=== PATIENT | female | born 1945 | race Caucasian/White ===

== ENCOUNTER 2021-03-27 05:12 | Inpatient (IN) | payer MEDICARE ==
[~2021-03-27] VITALS: Ht 157.5 cm; Wt 61.3 kg
[2021-03-27 06:57] VITALS: BP 163/85
[2021-03-27] MEDS ORDERED: BLOOD SUGAR DIAGNOSTIC 1 EACH STRIP IN ONE (07:00)
[2021-03-27] MEDS ORDERED: MAGNESIUM HYDROXIDE 30 ML UDC PO PRN (07:00)
[2021-03-27] MEDS ORDERED: MAG HYDROX/AL HYDROX/SIMETH 30 ML UDC PO PRN (07:00)
--- NOTE | 2021-03-27 07:37 | NUR ---
rn notes patient refused blood glucose to be checked, and keep asking paperwork, and belonging, to go out.
[2021-03-27 08:00] VITALS: BP 140/79
--- NOTE | 2021-03-27 08:00 | NUR ---
RN ADMITTING NOTES PATIENT GET ADMITTED FROM [facility] FOR DX OF PSYCHOSIS NOS, ON HOLD 5150. PATIENT A/O X2, IRRITABLE, CONFUSED, AND PARANOID EASILY. VSS, SKIN ASSESSMENT DONE INTACT. PATIENT AMBULATORY. TOLERATED BREAKFAST WELL. KEEP ASKING CLOTHING BECAUSE OF NOT FEEL COMFORTABLE. PATIENTS RIGHT BOOK GIVEN AND EXPLAINED. PATIENT NEED MORE TEACH. HOSPITALIST, AND PSYCHIATRIST AWARE OF NEW PATIENT AND MEDICATION. WILL MONITORING.
[2021-03-27 08:09] VITALS: BP 140/79
[2021-03-27] MEDS ORDERED: ATOR10TA PO (08:29)
[2021-03-27] MEDS ORDERED: METO-357 PO (08:29)
[2021-03-27] MEDS ORDERED: LOSA100T31 PO (08:29)
[2021-03-27] MEDS ORDERED: PANT40TA49 PO (08:29)
[2021-03-27] MEDS ORDERED: MELO-105 PO (08:29)
[2021-03-27] MEDS ORDERED: NORT10CA PO (08:29)
[2021-03-27] MEDS: ACETAMINOPHEN 325 MG TABLET PO PRN (10:25)
[2021-03-27] MEDS: LORAZEPAM 0.5 MG TABLET PO PRN (10:25)
--- NOTE | 2021-03-27 10:25 | NUR ---
rn notes administered Ativan 0.5 mg po prn for anxiety, and Tylenol 650mg po prn bilateral knees pain 5/10 per patient request, bp140/79, p-97. will monitoring.
[2021-03-27 16:00] VITALS: BP 148/64
[2021-03-27] MEDS: risperiDONE 0.25 MG TABLET PO SCH (17:19)
[2021-03-27 19:40] VITALS: BP 147/84
[2021-03-27] MEDS: TEMAZEPAM 7.5 MG CAPSULE PO PRN (21:46)
[2021-03-28 08:00] VITALS: BP 158/79
[2021-03-28] MEDS: risperiDONE 0.25 MG TABLET PO SCH ×2 (08:42→16:37)
--- NOTE | 2021-03-28 09:00 | NUR ---
RN NOTE- PT ALERT CONFUSED DENIES SI HI AH VH, OPPOSITIONAL TO RX BUT WAS MED COMPLIANT AFTER DISCUSSION. VISIBLE ON UNIT LABILE AT TIMES
[2021-03-28] MEDS: LOSARTAN POTASSIUM 50 MG TABLET PO SCH (11:11)
[2021-03-28] MEDS: METOPROLOL SUCCINATE 50 MG TAB.SR.24H PO SCH (11:11)
[2021-03-28 12:04] LABS: ALBUMIN 3.7 g/dL (3.4-5.0); BILIRUBIN,TOTAL 0.4 mg/dL (0.2-1.0); CALCIUM, SERUM 9.3 mg/dL (8.5-10.1); POTASSIUM 3.7 mmol/L (3.5-5.1); TOTAL PROTEIN, SERUM 7.4 g/dL (6.4-8.2)
--- NOTE | 2021-03-28 15:30 | NUR ---
Family Contact: Pts daughter, Kiara ([phone]), contacted the SW and stated that the pt cannot return home so the SW discussed SNF placement. SW recommended [facility] due to the location and due to the continuation of care for the psychiatrist. Pts daughter stated that she will call the SW back.
[2021-03-28 16:00] VITALS: BP 152/84
[2021-03-28 20:23] VITALS: BP 155/63
[2021-03-28] MEDS: LORAZEPAM 0.5 MG TABLET PO PRN (21:48)
--- NOTE | 2021-03-28 21:50 | NUR ---
GPS RN NOTES: PATIENT IS RESTLESS, ANXIOUS, CONFUSED. ATIVAN 0.5MG/1TAB GIVEN PO PRN ORDERED AT 8. WILL CONTINUE TO MONITOR.
[2021-03-28] MEDS ORDERED: risperiDONE 0.25 MG TABLET PO SCH (22:00)
--- NOTE | 2021-03-28 22:52 | NUR ---
GPS RN NOTES: PATIENT REFUSED PM RISPERDAL O.25MG/1TAB ORDERED. PER PATIENT "I WILL NOT TAKE ANY ILLEGAL MEDICATION". WILL CONTINUE TO MONITOR.
--- NOTE | 2021-03-29 06:31 | NUR ---
GPS RN CLOSING NOTES: PATIENT IS LAYING ON BED SLEEPING. PATIENT SLEPT 6HRS THIS SHIFT. NO S/S OF DISTRESS. RESPIRATION EVEN AND UNLABORED WITH EQUAL RISE AND FALL OF THE CHEST ON ROOM AIR. ALL PATIENT CARE NEEDS HAVE BEEN MET ANTICIPATED. BED IN LOWEST POSITION AND LOCKED WITH SIDE RAILS UP X2. WILL CONTINUE TO MONITOR FOR SAFETY, MOOD AND BEHAVIOR AND ENDORSE TO AM SHIFT
[2021-03-29 08:00] VITALS: BP 150/78
[2021-03-29] MEDS: MELOXICAM 7.5 MG TABLET PO SCH (08:13)
[2021-03-29] MEDS: ATORVASTATIN 10 MG TABLET PO SCH (08:14)
[2021-03-29] MEDS: PANTOPRAZOLE 40 MG TABLET.DR PO SCH (08:14)
[2021-03-29] MEDS: LOSARTAN POTASSIUM 50 MG TABLET PO SCH (08:14)
[2021-03-29] MEDS: METOPROLOL SUCCINATE 50 MG TAB.SR.24H PO SCH (08:14)
[2021-03-29] MEDS: risperiDONE 0.25 MG TABLET PO SCH ×2 (08:14→16:32)
[2021-03-29 16:00] VITALS: BP 135/79
[2021-03-29 20:00] VITALS: BP 158/73
[2021-03-29] MEDS ORDERED: risperiDONE 0.25 MG TABLET PO SCH (22:00)
[2021-03-30] VITALS (7 sets, daily range): BP systolic 108–188; BP diastolic 53–115
[2021-03-30] MEDS: PANTOPRAZOLE 40 MG TABLET.DR PO SCH (08:12)
[2021-03-30] MEDS: ATORVASTATIN 10 MG TABLET PO SCH (08:12)
[2021-03-30] MEDS: MELOXICAM 7.5 MG TABLET PO SCH (08:13)
[2021-03-30] MEDS: METOPROLOL SUCCINATE 50 MG TAB.SR.24H PO SCH (08:13)
[2021-03-30] MEDS: risperiDONE 0.25 MG TABLET PO SCH ×3 (08:13→21:19)
[2021-03-30] MEDS: LOSARTAN POTASSIUM 50 MG TABLET PO SCH (08:15)
--- NOTE | 2021-03-30 09:18 | NUR ---
Placement Contact: SW returned the call of Dr. Arevalo ([phone]), who left a voicemail stating that she would like to speak to the SW about the pts condition and why SNF was being recommended as the discharge plan. SW called and left a voicemail stating that she is available to speak to her about this pt.
--- NOTE | 2021-03-30 12:43 | NUR ---
Initial Discharge Plan: Pt currently resides at her home with her located at [address] [place] [address]; ([phone]). Per pt, she would like to go home. SW will work with the pt and the MD regarding appropriate discharge planning. SW will form a safe and proper discharge plan.
--- NOTE | 2021-03-30 13:14 | NUR ---
Placement Contact: Dr. Arevalo ([phone]) called the SW and stated that she wanted to know why the pt was being recommended for SNF. SW explained the reasoning and stated that memory care or assisted living would be acceptable for dedicated intermodal truck driver placement. Dr. Arevalo stated that she will speak to the family.
--- NOTE | 2021-03-30 15:35 | NUR ---
BP 184/115 and [place] [address] Little and added Nifedipine 30 mg Extended Release daily and to start now. Called the pharmacist for clarification of the Nifedipine Extended Release and XL and spoke to [facility] and said that they are all the same.
[2021-03-30] MEDS: NIFEdipine XL (30MG) 30 MG TAB PO SCH (15:42)
--- NOTE | 2021-03-30 20:08 | NUR ---
GPS RN NOTES RECEIVED PT AWAKE AND IN BED NO S/S OR COMPLAINTS OF PAIN AT THIS TIME. PT IS DISPLAYING NO S/S OF APPARENT DISTRESS A THIS TIME.PT BREATHING IS UNLABORED WITH EQUAL RISE AND FALL OF THE CHEST. PT IS ALERT AND ORIENTED X3 PARANOID COOPERATIVE, MEDICATION COMPLIANT. ON ROOM AIR TOLERATING WELL. DENIES AN SI OR HI AT THIS TIME. PT HELP ASSISTED WITH TURNING AND REPOSITIONING Q2HR AND PRN FOR COMFORT AND CIRCULATION. BED SIDE RAILS UP X2 FOR SAFETY. BED LOCKED AND LOW.ALL NURSING NEEDS MET AT THIS WILL CONTINUE TO MONITOR Q15 MIN WITH THE HELP OF STAFF TO MAINTAIN SAFETY TIME.
--- NOTE | 2021-03-30 21:22 | NUR ---
RN NOTE PATIENT REQUESTED TO TAKE ANY SCHEDULED MEDICINE TONIGHT AT THIS TIME, SO SHE CAN SLEEP & DOES NOT WANT TO BE BOTHERED AGAIN. SCHEDULED RISPERDAL 0.75 MG PO ADMINISTERED AT THIS TIME PER PATIENT REQUEST. WILL CONTINUE TO MONITOR.
--- NOTE | 2021-03-30 22:45 | NUR ---
RN NOTE PATIENT WOKE UP, WENT TO THE BATHROOM, NO ACUTE DISTRESS NOTED. NO C/O HEADACHE, DIZZINESS, CHEST PAIN OR BLURRED VISION VERBALIZED BY THE PATIENT AT THIS TIME. PATIENT REFUSED HER BP TO BE CHECKED AT THIS TIME & WANTED TO GO BACK TO SLEEP. WILL CONTINUE TO MONITOR FOR ANY CHANGE OF CONDITION.
[2021-03-31] MEDS: PANTOPRAZOLE 40 MG TABLET.DR PO SCH (07:03)
[2021-03-31 08:00] VITALS: BP 117/63
[2021-03-31] MEDS: LOSARTAN POTASSIUM 50 MG TABLET PO SCH (08:15)
[2021-03-31] MEDS: MELOXICAM 7.5 MG TABLET PO SCH (08:15)
[2021-03-31] MEDS: ATORVASTATIN 10 MG TABLET PO SCH (08:15)
[2021-03-31] MEDS: risperiDONE 0.25 MG TABLET PO SCH ×4 (08:15→22:00)
[2021-03-31] MEDS: METOPROLOL SUCCINATE 50 MG TAB.SR.24H PO SCH (08:15)
[2021-03-31 09:18] VITALS: BP 148/74
[2021-03-31] MEDS: NIFEdipine XL (30MG) 30 MG TAB PO SCH (09:18)
--- NOTE | 2021-03-31 10:16 | NUR ---
Family Contact: SW called the pts daughter, Kiara ([phone]), and left her a voicemail with an update on the pts behavior. SW expressed that the pt is medication compliant and that she has been coming out of her room and participating in the activities. SW stated that she still remains paranoid and delusional about someone coming into the house to sleep with her . SW stated that the daughter can call back if she has any questions.
--- NOTE | 2021-03-31 10:33 | NUR ---
Probable Cause Hearing: Pts 5250 hold was upheld for grave disability.
--- NOTE | 2021-03-31 11:36 | NUR ---
Family Contact: SW called the pts daughter, Kiara ([phone]), in response to her voicemail and explained that the pts diagnosis includes cognitive disorder unspecified.
[2021-03-31] MEDS: ACETAMINOPHEN 325 MG TABLET PO PRN (14:27)
[2021-03-31 16:00] VITALS: BP 123/52
--- NOTE | 2021-03-31 19:15 | NUR ---
RECEIVED PATIENT IN BED, AWAKE. ON ROOM AIR. BREATHING EVEN AND UNLABORED. NO S/S OF DISTRESS. NO C/O PAIN. PATIENT DENIES SUICIDAL IDEATIONS AT THIS TIME. ALL NEEDS ATTENDED. WILL CONTINUE TO MONITOR Q15 MIN WITH THE HELP OF STAFF TO MAINTAIN SAFETY.
[2021-03-31 20:03] VITALS: BP 136/70
[2021-04-01 08:00] VITALS: BP 147/68
[2021-04-01] MEDS: PANTOPRAZOLE 40 MG TABLET.DR PO SCH (08:00)
[2021-04-01] MEDS: LOSARTAN POTASSIUM 50 MG TABLET PO SCH (08:10)
[2021-04-01] MEDS: NIFEdipine XL (30MG) 30 MG TAB PO SCH (08:10)
[2021-04-01] MEDS: risperiDONE 0.25 MG TABLET PO SCH ×3 (08:11→21:21)
[2021-04-01] MEDS: ATORVASTATIN 10 MG TABLET PO SCH (08:11)
[2021-04-01] MEDS: METOPROLOL SUCCINATE 50 MG TAB.SR.24H PO SCH (08:11)
[2021-04-01] MEDS: MELOXICAM 7.5 MG TABLET PO SCH (08:12)
[2021-04-01 16:00] VITALS: BP 128/69
--- NOTE | 2021-04-01 19:50 | NUR ---
RN NOTE RECEIVED PATIENT RESTING IN BED. AWAKE, A/O X 3. NO COMPLAINTS OF PAIN AT THIS TIME. RESPIRATIONS EVEN AND UNLABORED. NO S/SX OF DISTRESS OR AGITATION NOTED. PATIENT AMBULATES WITH STEADY GAIT. ALL NEEDS ATTENDED TO. ASPIRATION, FALL AND SAFETY PRECAUTIONS MAINTAINED. WILL CONTINUE TO MONITOR FOR SAFETY.
[2021-04-01 20:12] VITALS: BP 152/69
[2021-04-01] MEDS: ACETAMINOPHEN 325 MG TABLET PO PRN (21:50)
[2021-04-01] MEDS: LORAZEPAM 0.5 MG TABLET PO PRN (21:50)
--- NOTE | 2021-04-01 21:50 | NUR ---
RN NOTE PATIENT WITH C/O HEADACHE AND INCREASED ANXIETY. ADMINISTERED TYLENOL AND ATIVAN PRN WITH PENDING EFFECT. WILL CONTINUE TO MONITOR.
[2021-04-02 08:00] VITALS: BP 145/58
[2021-04-02] MEDS: PANTOPRAZOLE 40 MG TABLET.DR PO SCH (08:10)
[2021-04-02] MEDS: risperiDONE 0.25 MG TABLET PO SCH ×3 (08:10→21:17)
[2021-04-02] MEDS: MELOXICAM 7.5 MG TABLET PO SCH (08:10)
[2021-04-02] MEDS: ATORVASTATIN 10 MG TABLET PO SCH (08:10)
[2021-04-02] MEDS: METOPROLOL SUCCINATE 50 MG TAB.SR.24H PO SCH (08:11)
[2021-04-02] MEDS: LOSARTAN POTASSIUM 50 MG TABLET PO SCH (08:11)
[2021-04-02] MEDS: NIFEdipine XL (30MG) 30 MG TAB PO SCH (08:11)
[2021-04-02 16:00] VITALS: BP 142/76
--- NOTE | 2021-04-02 16:15 | NUR ---
RN-CO: CALLED AND SAID PT IS TAKING COMBIGAN EYE DROPS AT HOME Q HS FOR HER GLAUCOMA. PER SPOUSE HE WILL BRING IT TOMORROW. NOTIFIED DR TOVAR AND STATED TO PUT THE ORDER FOR TOMM. NOTED. ENDORSE TO NEXT SHIFT.
[2021-04-02] MEDS ORDERED: BRIM5DRO2 EACHEYE (18:23)
[2021-04-02 20:00] VITALS: BP 155/75
[2021-04-02] MEDS: COMBIGAN EACHEYE SCH (21:19)
[2021-04-03] MEDS: PANTOPRAZOLE 40 MG TABLET.DR PO SCH (07:30)
[2021-04-03 08:00] VITALS: BP 147/58
[2021-04-03] MEDS: ATORVASTATIN 10 MG TABLET PO SCH (09:13)
[2021-04-03] MEDS: risperiDONE 0.25 MG TABLET PO SCH ×3 (09:13→21:11)
[2021-04-03] MEDS: LOSARTAN POTASSIUM 50 MG TABLET PO SCH (09:13)
[2021-04-03] MEDS: MELOXICAM 7.5 MG TABLET PO SCH (09:14)
[2021-04-03] MEDS: METOPROLOL SUCCINATE 50 MG TAB.SR.24H PO SCH (09:14)
[2021-04-03] MEDS: NIFEdipine XL (30MG) 30 MG TAB PO SCH (09:15)
--- NOTE | 2021-04-03 12:55 | NUR ---
SNF Referral: AMAYA faxed a referral to [facility] with attn to Holly to the fax number: [phone].
--- NOTE | 2021-04-03 13:35 | NUR ---
SNF Contact: Holly ([phone]) from [facility] contacted the SW and stated that the pt is accepted to their facility.
[2021-04-03 16:00] VITALS: BP 143/71
[2021-04-03 20:00] VITALS: BP 150/69
[2021-04-03] MEDS: COMBIGAN EACHEYE SCH (21:11)
[2021-04-03] MEDS: LORAZEPAM 0.5 MG TABLET PO PRN (22:15)
--- NOTE | 2021-04-03 22:16 | NUR ---
GPS RN NOTES: PATIENT IS ANXIOUS, RESTLESS, REQUESTED FOR ANXIETY MEDICATION. ATIVAN 0.5MG/1TAB GIVEN PO PRN ORDERED AT 2215. WILL CONTINUE TO MONITOR.
--- NOTE | 2021-04-04 06:43 | NUR ---
GPS RN CLOSING NOTES: PATIENT IS CURRENTLY LAYING ON BED SLEEPING COMFORTABLY. PATIENT SLEPT 8HRS THIS SHIFT. NO S/S OF DISTRESS. RESPIRATION EVEN AND UNLABORED WITH EQUAL RISE AND FALL OF THE CHEST, ON ROOM AIR. BED IN LOWEST POSITION AND LOCKED WITH SIDE RAILS UP X2. CALL JAVIER WITHIN REACH. ALL PATIENT CARE NEEDS HAVE BEEN MET ANTICIPATED. WILL CONTINUE TO MONITOR FOR SAFETY, MOOD AND BEHAVIOR AND ENDORSE TO AM SHIFT
[2021-04-04 08:00] VITALS: BP 146/62
[2021-04-04] MEDS: ATORVASTATIN 10 MG TABLET PO SCH (09:08)
[2021-04-04] MEDS: MELOXICAM 7.5 MG TABLET PO SCH (09:08)
[2021-04-04] MEDS: PANTOPRAZOLE 40 MG TABLET.DR PO SCH (09:08)
[2021-04-04] MEDS: LOSARTAN POTASSIUM 50 MG TABLET PO SCH (09:08)
[2021-04-04] MEDS: risperiDONE 0.25 MG TABLET PO SCH ×2 (09:08→16:35)
[2021-04-04] MEDS: METOPROLOL SUCCINATE 50 MG TAB.SR.24H PO SCH (09:09)
--- NOTE | 2021-04-04 14:30 | NUR ---
verbalized being upset over spouse and not being able to trust him.
[2021-04-04] MEDS: NIFEdipine XL (30MG) 30 MG TAB PO SCH (16:36)
[2021-04-04 20:00] VITALS: BP 147/64
[2021-04-04] MEDS: LORAZEPAM 0.5 MG TABLET PO PRN (20:58)
--- NOTE | 2021-04-04 21:01 | NUR ---
GPS RN NOTES: PATIENT REQUESTED FOR ATIVAN DUE TO ANXIETY. ATIVAN 0.5MG/1TAB GIVEN PO PRN AT 2057. WILL CONTINUE TO MONITOR.
[2021-04-04] MEDS: COMBIGAN EACHEYE SCH (21:11)
[2021-04-04] MEDS: risperiDONE 1 MG TABLET PO SCH (21:11)
[2021-04-04] MEDS ORDERED: ATORVASTATIN 10 MG TABLET PO SCH (22:00)
--- NOTE | 2021-04-05 06:38 | NUR ---
GPS RN CLOSING NOTES: PATIENT IS AWAKE, A/O X2, AMBULATING IN HALLWAY. PATIENT SLEPT 9HRS THIS SHIFT. NO S/S OF DISTRESS. RESPIRATION EVEN AND UNLABORED WITH EQUAL RISE AND FALL OF THE CHEST, ON ROOM AIR. BED IN LOWEST POSITION AND LOCKED WITH SIDE RAILS UP X2. CALL JAVIER WITHIN REACH. ALL PATIENT CARE NEEDS HAVE BEEN MET ANTICIPATED. WILL CONTINUE TO MONITOR FOR SAFETY, MOOD AND BEHAVIOR AND ENDORSE TO AM SHIFT
--- NOTE | 2021-04-05 07:30 | NUR ---
PT RECEIVED RESTING COMFORTABLY IN BED. NO S/S OR C/O PAIN OR DISTRESS NOTED. WILL CONTINUE PLAN OF CARE.
[2021-04-05 08:00] VITALS: BP_SYST 126; BP_SYST 143; BP_DIAS 60; BP_DIAS 67
[2021-04-05] MEDS: NIFEdipine XL (30MG) 30 MG TAB PO SCH (08:31)
[2021-04-05] MEDS: MELOXICAM 7.5 MG TABLET PO SCH (08:31)
[2021-04-05] MEDS: PANTOPRAZOLE 40 MG TABLET.DR PO SCH (08:31)
[2021-04-05] MEDS: LOSARTAN POTASSIUM 50 MG TABLET PO SCH (08:31)
[2021-04-05] MEDS: ATORVASTATIN 10 MG TABLET PO SCH (08:32)
[2021-04-05] MEDS: METOPROLOL SUCCINATE 50 MG TAB.SR.24H PO SCH (08:32)
[2021-04-05] MEDS: risperiDONE 0.25 MG TABLET PO SCH ×2 (08:32→17:11)
--- NOTE | 2021-04-05 09:05 | NUR ---
Family Contact: AMAYA called the pts daughter, Kiara ([phone]), and was unable to leave a voicemail due to the mailbox being full.
--- NOTE | 2021-04-05 11:07 | NUR ---
Family Contact: AMAYA called the pts daughter, Kiara ([phone]), and was unable to leave a voicemail due to the mailbox being full.
[2021-04-05 16:00] VITALS: BP 147/80
--- NOTE | 2021-04-05 20:00 | NUR ---
GPS RN NOTES REFUSED VITAL SIGNS THIS TIME.UNCOOPERATIVE
[2021-04-05] MEDS: risperiDONE 1 MG TABLET PO SCH (21:38)
[2021-04-05] MEDS: COMBIGAN EACHEYE SCH (21:38)
[2021-04-06 08:00] VITALS: BP 124/62
[2021-04-06] MEDS: LOSARTAN POTASSIUM 50 MG TABLET PO SCH (08:29)
[2021-04-06] MEDS: PANTOPRAZOLE 40 MG TABLET.DR PO SCH (08:29)
[2021-04-06] MEDS: risperiDONE 0.25 MG TABLET PO SCH ×2 (08:29→17:13)
[2021-04-06] MEDS: ATORVASTATIN 10 MG TABLET PO SCH (08:30)
[2021-04-06] MEDS: MELOXICAM 7.5 MG TABLET PO SCH (08:30)
[2021-04-06] MEDS: METOPROLOL SUCCINATE 50 MG TAB.SR.24H PO SCH (08:30)
[2021-04-06] MEDS: NIFEdipine XL (30MG) 30 MG TAB PO SCH (09:28)
[2021-04-06 16:00] VITALS: BP 147/68
--- NOTE | 2021-04-06 19:15 | NUR ---
RN NOTES: RECEIVED PATIENT RESTING IN BED, AWAKE, QUIET AND CALM. PT RESPONDED AND STATED HER NAME WHEN ASKED. PATIENT IS COMFORTABLE IN BED. NO S/S OF DISTRESS NOTED. BED IN LOWEST AND LOCKED POSITION.
[2021-04-06 20:00] VITALS: BP 131/53
[2021-04-06] MEDS: COMBIGAN EACHEYE SCH (21:31)
[2021-04-06] MEDS: risperiDONE 1 MG TABLET PO SCH (21:32)
[2021-04-07] MEDS: PANTOPRAZOLE 40 MG TABLET.DR PO SCH (07:52)
[2021-04-07 08:00] VITALS: BP 162/89
[2021-04-07] MEDS: risperiDONE 0.25 MG TABLET PO SCH ×2 (08:00→16:06)
[2021-04-07] MEDS: ATORVASTATIN 10 MG TABLET PO SCH (08:00)
[2021-04-07] MEDS: LOSARTAN POTASSIUM 50 MG TABLET PO SCH (08:01)
[2021-04-07] MEDS: MELOXICAM 7.5 MG TABLET PO SCH (08:01)
[2021-04-07] MEDS: NIFEdipine XL (30MG) 30 MG TAB PO SCH (08:02)
[2021-04-07] MEDS: METOPROLOL SUCCINATE 50 MG TAB.SR.24H PO SCH (08:02)
--- NOTE | 2021-04-07 08:55 | NUR ---
Family Contact: SW called the pts daughter, Kiara ([phone]), and left a voicemail stating that the SW would like to discuss the pts treatment and discharge plan.
--- NOTE | 2021-04-07 11:30 | NUR ---
Family Contact: Pts daughter, Kiara ([phone]), called the SW back and stated that she has a lot of nursing concerns so the SW stated that she would ensure that the nurse gives her a call. SW then went over the pts discharge plan and SW stated that the pt will be discharged to [facility] on Saturday. Pts daughter accepted the plan.
--- NOTE | 2021-04-07 14:44 | NUR ---
RN-CO: I was able to check the patient's right toe nail after strong encouragement (post ingrown removal before admission). no s/s of infection noted, patiwent denied any pain and discomforts. No discharges nor redness noted.
[2021-04-07 16:00] VITALS: BP_SYST 145; BP_SYST 152; BP_DIAS 65; BP_DIAS 70
[2021-04-07] MEDS: LORAZEPAM 0.5 MG TABLET PO PRN (16:06)
--- NOTE | 2021-04-07 16:10 | NUR ---
RN-CO: ATIVAN GIVEN FOR ANXIETY.
[2021-04-07 16:47] VITALS: BP 145/65
[2021-04-07 20:00] VITALS: BP 163/92
[2021-04-07 20:25] VITALS: BP 163/92
--- NOTE | 2021-04-07 20:31 | NUR ---
GPS RN NOTES PATIENT IS COOPERATIVE TO CARE. STILL PARANOID, RESTING IN BED. VITAL SIGNS STABLE. MED COMPLIANT.
[2021-04-07] MEDS: risperiDONE 1 MG TABLET PO SCH (21:54)
[2021-04-07] MEDS: COMBIGAN EACHEYE SCH (21:55)
[2021-04-08 08:00] VITALS: BP 149/74
[2021-04-08] MEDS: ATORVASTATIN 10 MG TABLET PO SCH (08:51)
[2021-04-08] MEDS: METOPROLOL SUCCINATE 50 MG TAB.SR.24H PO SCH (08:52)
[2021-04-08] MEDS: LOSARTAN POTASSIUM 50 MG TABLET PO SCH (08:52)
[2021-04-08] MEDS: NIFEdipine XL (30MG) 30 MG TAB PO SCH (08:53)
[2021-04-08] MEDS: PANTOPRAZOLE 40 MG TABLET.DR PO SCH (08:53)
[2021-04-08] MEDS: risperiDONE 0.25 MG TABLET PO SCH ×2 (08:53→17:01)
[2021-04-08] MEDS: MELOXICAM 7.5 MG TABLET PO SCH (08:54)
--- NOTE | 2021-04-08 15:25 | NUR ---
seems very depressed,not mingling and keeps to self.
[2021-04-08 16:00] VITALS: BP 139/64
[2021-04-08 19:51] VITALS: BP 131/57
[2021-04-08] MEDS ORDERED: METOPROLOL TARTRATE 50 MG TABLET PO SCH (21:00)
[2021-04-08] MEDS: risperiDONE 1 MG TABLET PO SCH (21:48)
[2021-04-08] MEDS: COMBIGAN EACHEYE SCH (21:48)
--- NOTE | 2021-04-09 06:38 | NUR ---
GPS RN CLOSING NOTES: PATIENT IS CURRENTLY SLEEPING. PATIENT SLEPT 8HRS THIS SHIFT. NO S/S OF DISTRESS. RESPIRATION EVEN AND UNLABORED WITH EQUAL RISE AND FALL OF THE CHEST, ON ROOM AIR. BED IN LOWEST POSITION AND LOCKED WITH SIDE RAILS UP X2. CALL JAVIER WITHIN REACH. ALL PATIENT CARE NEEDS HAVE BEEN MET ANTICIPATED. WILL CONTINUE TO MONITOR FOR SAFETY, MOOD AND BEHAVIOR AND ENDORSE TO AM SHIFT
[2021-04-09 08:00] VITALS: BP 149/76
--- NOTE | 2021-04-09 08:00 | NUR ---
RN OPENING NOTE PATIENT IN BED, AWAKE A/O X1-2. BLUNTED AFFECT, APPEARS DEPRESSED, GUARDED, PASSIVE. COOPERATIVE, WITHDRAWN. DENIES SI/HI/AV/AH AT THIS TIME, DENIES PAIN OR NAUSEA. RESPIRATION EVEN AND UNLABORED WITH NO SOB OR RESPIRATORY DISTRESS, ON ROOM AIR. WILL CONTINUE TO MONITOR Q15 MIN FOR SAFETY, MOOD AND BEHAVIOR.
[2021-04-09] MEDS: risperiDONE 0.25 MG TABLET PO SCH ×2 (08:19→17:46)
[2021-04-09] MEDS: ATORVASTATIN 10 MG TABLET PO SCH (08:19)
[2021-04-09] MEDS: NIFEdipine XL (30MG) 30 MG TAB PO SCH (08:19)
[2021-04-09] MEDS: MELOXICAM 7.5 MG TABLET PO SCH (08:19)
[2021-04-09] MEDS: LOSARTAN POTASSIUM 50 MG TABLET PO SCH (08:20)
[2021-04-09] MEDS: METOPROLOL TARTRATE 50 MG TABLET PO SCH (08:20)
[2021-04-09] MEDS: PANTOPRAZOLE 40 MG TABLET.DR PO SCH (08:20)
[2021-04-09 16:11] VITALS: BP 148/63
--- NOTE | 2021-04-09 18:19 | NUR ---
RN CLOSING NOTE PATIENT IN BED, AWAKE A/O X1-2. BLUNTED AFFECT, APPEARS DEPRESSED, GUARDED, PASSIVE. COOPERATIVE, WITHDRAWN. DENIES SI/HI/AV/AH AT THIS TIME, DENIES PAIN OR NAUSEA. RESPIRATION EVEN AND UNLABORED WITH NO SOB OR RESPIRATORY DISTRESS, ON ROOM AIR. REPORT TO BE GIVEN TO NIGHT NURSE FOR JUANA.
[2021-04-09 20:00] VITALS: BP 150/86
[2021-04-09] MEDS: LORAZEPAM 0.5 MG TABLET PO PRN (20:00)
--- NOTE | 2021-04-09 20:01 | NUR ---
GPS-RN NOTE: ANXIETY PATIENT C/O FEELING ANXIOUS. PRN ATIVAN 0.5MG PO GIVEN. WILL CONTINUE TO MONITOR FOR PATIENT'S SAFETY.
[2021-04-09 20:40] VITALS: BP 150/86
[2021-04-09] MEDS: risperiDONE 1 MG TABLET PO SCH (21:01)
[2021-04-09] MEDS: COMBIGAN EACHEYE SCH (21:02)
[2021-04-09] MEDS: TEMAZEPAM 7.5 MG CAPSULE PO PRN (22:02)
[2021-04-10 08:00] VITALS: BP 133/55
[2021-04-10] MEDS: NIFEdipine XL (30MG) 30 MG TAB PO SCH (08:00)
[2021-04-10] MEDS: LOSARTAN POTASSIUM 50 MG TABLET PO SCH (08:01)
[2021-04-10] MEDS: METOPROLOL TARTRATE 50 MG TABLET PO SCH (08:01)
[2021-04-10] MEDS: PANTOPRAZOLE 40 MG TABLET.DR PO SCH (08:02)
[2021-04-10] MEDS: ATORVASTATIN 10 MG TABLET PO SCH (08:02)
[2021-04-10] MEDS: risperiDONE 0.25 MG TABLET PO SCH ×3 (08:02→16:09)
[2021-04-10] MEDS: MELOXICAM 7.5 MG TABLET PO SCH (08:02)
--- NOTE | 2021-04-10 09:00 | NUR ---
RN NOTE- PT QUIET WITHDRAWN SLOW TO RESPOND POOR EYE CONTACT MINIMAL INTERACTION PO INTAKE FAIR, MED COMPLIANT CONFUSED
[2021-04-10 16:00] VITALS: BP 135/67
[2021-04-10 20:15] VITALS: BP 154/58
[2021-04-10] MEDS: risperiDONE 1 MG TABLET PO SCH (21:25)
[2021-04-10] MEDS: COMBIGAN EACHEYE SCH (21:25)
[2021-04-11 08:00] VITALS: BP_SYST 148; BP_SYST 150; BP_DIAS 51; BP_DIAS 59
[2021-04-11] MEDS: PANTOPRAZOLE 40 MG TABLET.DR PO SCH (08:27)
[2021-04-11] MEDS: NIFEdipine XL (30MG) 30 MG TAB PO SCH (08:39)
[2021-04-11] MEDS: ATORVASTATIN 10 MG TABLET PO SCH (08:40)
[2021-04-11] MEDS: MELOXICAM 7.5 MG TABLET PO SCH (08:40)
[2021-04-11] MEDS: risperiDONE 0.25 MG TABLET PO SCH ×3 (08:40→12:40)
[2021-04-11] MEDS: METOPROLOL TARTRATE 50 MG TABLET PO SCH (08:40)
[2021-04-11] MEDS: LOSARTAN POTASSIUM 50 MG TABLET PO SCH (08:40)
--- NOTE | 2021-04-11 09:00 | NUR ---
RN NOTE- PT WITHDRAWN ISOLATIVE MED COMPLIANT FLAT AFFECT PT CONFUSED AND IRRITABLE AT TIMES
[2021-04-11 16:00] VITALS: BP 135/56
[2021-04-11] MEDS: risperiDONE 1 MG TABLET PO SCH ×2 (16:50→22:02)
[2021-04-11] MEDS: COMBIGAN EACHEYE SCH (22:02)
[2021-04-12 08:00] VITALS: BP 160/59
[2021-04-12] MEDS: PANTOPRAZOLE 40 MG TABLET.DR PO SCH (08:08)
[2021-04-12] MEDS: LOSARTAN POTASSIUM 50 MG TABLET PO SCH (09:13)
[2021-04-12] MEDS: MELOXICAM 7.5 MG TABLET PO SCH (09:13)
[2021-04-12] MEDS: NIFEdipine XL (30MG) 30 MG TAB PO SCH (09:14)
[2021-04-12] MEDS: risperiDONE 1 MG TABLET PO SCH ×3 (09:14→21:53)
[2021-04-12] MEDS: METOPROLOL TARTRATE 50 MG TABLET PO SCH (09:14)
[2021-04-12] MEDS: ATORVASTATIN 10 MG TABLET PO SCH (09:14)
--- NOTE | 2021-04-12 10:35 | NUR ---
Patient notes food is not to her liking. She says it is not good. Valente Amaya RN
[2021-04-12] MEDS: GABAPENTIN 100 MG CAPSULE PO SCH ×2 (13:00→17:27)
--- NOTE | 2021-04-12 13:12 | NUR ---
Patient declines gabapentin. Says she has no nerve pain. Valente Amaya RN
[2021-04-12 16:00] VITALS: BP 156/57
[2021-04-12 20:57] VITALS: BP 150/53
[2021-04-12] MEDS: COMBIGAN EACHEYE SCH (21:54)
[2021-04-13 06:47] LABS: CALCIUM, SERUM 8.9 mg/dL (8.5-10.1); POTASSIUM 4.2 mmol/L (3.5-5.1)
[2021-04-13 08:00] VITALS: BP 159/74
[2021-04-13] MEDS: risperiDONE 1 MG TABLET PO SCH ×3 (08:27→21:40)
[2021-04-13] MEDS: NIFEdipine XL (30MG) 30 MG TAB PO SCH (08:27)
[2021-04-13] MEDS: PANTOPRAZOLE 40 MG TABLET.DR PO SCH (08:27)
[2021-04-13] MEDS: ATORVASTATIN 10 MG TABLET PO SCH (08:28)
[2021-04-13] MEDS: MELOXICAM 7.5 MG TABLET PO SCH (08:28)
[2021-04-13] MEDS: GABAPENTIN 100 MG CAPSULE PO SCH ×3 (08:28→16:43)
[2021-04-13] MEDS: LOSARTAN POTASSIUM 50 MG TABLET PO SCH (08:28)
[2021-04-13] MEDS: METOPROLOL TARTRATE 50 MG TABLET PO SCH (08:32)
[2021-04-13] MEDS: METFORMIN 500 MG TABLET PO SCH (11:14)
--- NOTE | 2021-04-13 14:36 | NUR ---
Family Contact: AMAYA called the pts daughter, Kiara ([phone]), and informed her that the pt is going to be discharged to [facility] the following day and went over the medication changes.
[2021-04-13 16:00] VITALS: BP 149/66
--- NOTE | 2021-04-13 19:15 | NUR ---
RN NOTE PATIENT SLEEPING IN BED AT THIS TIME, EASILY AWAKENED. BREATHING EVEN AND UNLABORED. PATIENT DOES DOES NOT COMPLAIN OF ANY DISCOMFORT AT THIS TIME. SAFETY MEASURES IN PLACE. WILL MONITOR PATIENT CLOSELY.
[2021-04-13 20:33] VITALS: BP 147/54
[2021-04-13] MEDS: COMBIGAN EACHEYE SCH (21:41)
[2021-04-13] MEDS ORDERED: GABAPENTIN 100 MG CAPSULE PO SCH (22:00)
--- NOTE | 2021-04-14 07:02 | NUR ---
RN NOTE PATIENT STILL SLEEPING AT THIS TIME. NOT IN ANY APPARENT DISTRESS. ALL NEEDS MET AND ATTENDED. COMPLIANT WITH MEDICATION. WILL ENDORSE TO DAY SHIFT NURSE FOR JUANA.
[2021-04-14] MEDS: PANTOPRAZOLE 40 MG TABLET.DR PO SCH (07:48)
[2021-04-14 08:00] VITALS: BP 147/90
[2021-04-14] MEDS: METFORMIN 500 MG TABLET PO SCH (08:16)
[2021-04-14] MEDS: GABAPENTIN 100 MG CAPSULE PO SCH ×3 (08:16→16:16)
[2021-04-14] MEDS: MELOXICAM 7.5 MG TABLET PO SCH (08:16)
[2021-04-14] MEDS: METOPROLOL TARTRATE 50 MG TABLET PO SCH (08:16)
[2021-04-14] MEDS: ATORVASTATIN 10 MG TABLET PO SCH (08:17)
[2021-04-14] MEDS: NIFEdipine XL (30MG) 30 MG TAB PO SCH (08:17)
[2021-04-14] MEDS: risperiDONE 1 MG TABLET PO SCH ×3 (08:17→21:55)
[2021-04-14] MEDS: LOSARTAN POTASSIUM 50 MG TABLET PO SCH (08:17)
--- NOTE | 2021-04-14 09:00 | NUR ---
RN NOTE- PT CONFUSED SLOW TO RESPOND POOR EYE CONTACT WITHDRAWN CONFUSED MED COMPLIANT THOUGH QUESTIONS EVERYTHING, STATES 'TOO MUCH MEDICINE " DENIES SI HI AH VH PO INTAKE FAIR
--- NOTE | 2021-04-14 09:37 | NUR ---
Dr. Monreal gave and order to D/C hold and D/C to [facility] and to follow up with psych and medical doctors and to continue same meds including prn.
--- NOTE | 2021-04-14 10:31 | NUR ---
Irvin Ferrer WASH BARREL LEADER in the unit and made aware of the discharge and reconciled meds.
--- NOTE | 2021-04-14 11:21 | NUR ---
RN NOTE- PT W C/O NO BM X 2 DAYS. BOWEL SOUNDS HYPOACTIVE. MILK OF MAGNESIA 30 CC GIVEN
[2021-04-14] MEDS: LORAZEPAM 0.5 MG TABLET PO PRN (14:15)
--- NOTE | 2021-04-14 14:17 | NUR ---
RN NOTE- ANXIETY PRESENT. DC HELD UP BY . NO MORE DC TODAY. ATIVAN 0.5 MG GIVEN
--- NOTE | 2021-04-14 15:28 | NUR ---
Family Contact: SW called the pts daughter, Kiara ([phone]), and informed her that the pt did not end up discharging. AMAYA stated she will keep her updated on when.
[2021-04-14 16:00] VITALS: BP 106/46
[2021-04-14 19:55] VITALS: BP 129/60
[2021-04-14 20:27] VITALS: BP 127/67
[2021-04-14] MEDS: COMBIGAN EACHEYE SCH (21:54)
[2021-04-14] MEDS: GABAPENTIN 300 MG CAPSULE PO SCH (21:54)
[2021-04-15 08:00] VITALS: BP 134/64
[2021-04-15] MEDS: NIFEdipine XL (30MG) 30 MG TAB PO SCH ×3 (09:00→10:48)
[2021-04-15] MEDS: GABAPENTIN 100 MG CAPSULE PO SCH ×4 (09:00→17:16)
[2021-04-15] MEDS: PANTOPRAZOLE 40 MG TABLET.DR PO SCH (09:08)
[2021-04-15] MEDS: METOPROLOL TARTRATE 50 MG TABLET PO SCH ×3 (09:09→10:49)
[2021-04-15] MEDS: risperiDONE 1 MG TABLET PO SCH ×3 (09:09→21:13)
[2021-04-15] MEDS: ATORVASTATIN 10 MG TABLET PO SCH (09:09)
[2021-04-15] MEDS: MELOXICAM 7.5 MG TABLET PO SCH (09:10)
[2021-04-15] MEDS: METFORMIN 500 MG TABLET PO SCH (10:30)
[2021-04-15] MEDS: LOSARTAN POTASSIUM 50 MG TABLET PO SCH (10:30)
[2021-04-15] MEDS ORDERED: MECLIZINE HCL 25 MG TABLET PO PRN (11:00)
--- NOTE | 2021-04-15 11:10 | NUR ---
TOO DROWSY,NEURONTIN HELD.
--- NOTE | 2021-04-15 11:15 | NUR ---
DID NOT TAKE AM MEDS ON TIME VEY DROWSY.
[2021-04-15 16:00] VITALS: BP 127/57
[2021-04-15 19:58] VITALS: BP 146/72
[2021-04-15 20:00] VITALS: BP 146/72
--- NOTE | 2021-04-15 20:00 | NUR ---
IN HER ROOM ALERT AND ORIENTED X3 SPEECH CLEAR. LYING IN HER BED. NO C/O
[2021-04-15] MEDS: GABAPENTIN 300 MG CAPSULE PO SCH (21:13)
[2021-04-15] MEDS: COMBIGAN EACHEYE SCH (21:14)
--- NOTE | 2021-04-16 05:47 | NUR ---
END OF SHIFT NOTES: AT THE BEGINNING OF THE SHIFT PATIENT ALET AND ORIENTATED X4. SPEECH CLEAR. SMILING . NOTED BEFORE TAKING MEDICATION SHE HAD TO SEE THE PKG NOT OPEN AND NAME ON THE PKG. SHE SLEPT 8 HOURS THIS NIGHT. OFFERED RESTORIL, BUT SHE DID NOT WANT "ANY MORE MEDICATION". NO C/O DIZZINESS WHEN STANDING
[2021-04-16 08:00] VITALS: BP 137/97
[2021-04-16] MEDS: GABAPENTIN 100 MG CAPSULE PO SCH ×3 (08:16→16:14)
[2021-04-16] MEDS: MELOXICAM 7.5 MG TABLET PO SCH (08:17)
[2021-04-16] MEDS: ATORVASTATIN 10 MG TABLET PO SCH (08:17)
[2021-04-16] MEDS: LOSARTAN POTASSIUM 50 MG TABLET PO SCH (08:17)
[2021-04-16] MEDS: PANTOPRAZOLE 40 MG TABLET.DR PO SCH (08:17)
[2021-04-16] MEDS: NIFEdipine XL (30MG) 30 MG TAB PO SCH (08:17)
[2021-04-16] MEDS: METOPROLOL TARTRATE 50 MG TABLET PO SCH (08:18)
[2021-04-16] MEDS: risperiDONE 1 MG TABLET PO SCH ×3 (08:18→21:33)
[2021-04-16] MEDS: METFORMIN 500 MG TABLET PO SCH (08:18)
[2021-04-16 16:00] VITALS: BP 137/59
[2021-04-16 20:00] VITALS: BP 157/51
[2021-04-16] MEDS: COMBIGAN EACHEYE SCH (21:33)
[2021-04-16] MEDS: GABAPENTIN 300 MG CAPSULE PO SCH (21:33)
[2021-04-17 08:00] VITALS: BP 135/53
[2021-04-17] MEDS: METOPROLOL TARTRATE 50 MG TABLET PO SCH (08:37)
[2021-04-17] MEDS: NIFEdipine XL (30MG) 30 MG TAB PO SCH (08:39)
--- NOTE | 2021-04-17 08:44 | NUR ---
GPS RN NOTES PATIENTWITH BORDERLINE DIASTOLIC BP AND HR (D BP 53; HR 65) TWO BP MEDS HELD.
[2021-04-17] MEDS: ATORVASTATIN 10 MG TABLET PO SCH (08:48)
[2021-04-17] MEDS: MELOXICAM 7.5 MG TABLET PO SCH (08:48)
[2021-04-17] MEDS: METFORMIN 500 MG TABLET PO SCH (08:48)
[2021-04-17] MEDS: risperiDONE 1 MG TABLET PO SCH ×3 (08:48→21:44)
[2021-04-17] MEDS: GABAPENTIN 100 MG CAPSULE PO SCH ×3 (08:49→16:30)
[2021-04-17] MEDS: PANTOPRAZOLE 40 MG TABLET.DR PO SCH (08:49)
[2021-04-17] MEDS: LOSARTAN POTASSIUM 50 MG TABLET PO SCH (08:49)
[2021-04-17 16:00] VITALS: BP 141/64
--- NOTE | 2021-04-17 16:02 | NUR ---
Family Contact: AMAYA called the pts daughter, Kiara ([phone]), and informed her that the pt is going to be discharged to [facility] the following day.
[2021-04-17 20:00] VITALS: BP 142/57
[2021-04-17] MEDS: GABAPENTIN 300 MG CAPSULE PO SCH (21:44)
[2021-04-17] MEDS: COMBIGAN EACHEYE SCH (21:49)
[2021-04-18 08:00] VITALS: BP 141/58
[2021-04-18] MEDS: NIFEdipine XL (30MG) 30 MG TAB PO SCH (08:15)
[2021-04-18] MEDS: PANTOPRAZOLE 40 MG TABLET.DR PO SCH (08:15)
[2021-04-18 08:16] VITALS: BP 141/58
[2021-04-18] MEDS: MELOXICAM 7.5 MG TABLET PO SCH (08:16)
[2021-04-18] MEDS: METOPROLOL TARTRATE 50 MG TABLET PO SCH (08:16)
[2021-04-18] MEDS: ATORVASTATIN 10 MG TABLET PO SCH (08:16)
[2021-04-18] MEDS: LOSARTAN POTASSIUM 50 MG TABLET PO SCH (08:16)
[2021-04-18] MEDS: risperiDONE 1 MG TABLET PO SCH (08:16)
[2021-04-18] MEDS: GABAPENTIN 100 MG CAPSULE PO SCH ×2 (08:16→12:29)
[2021-04-18] MEDS: METFORMIN 500 MG TABLET PO SCH (08:16)
--- NOTE | 2021-04-18 11:16 | NUR ---
Discharge Note: Pt will be discharged to [facility] SNF located at [address] [place] [address]; . Pt will be transported via [facility] at 1PM. Pts daughter, Kiara ([phone]) was made aware of the placement. Upon discharge, the pt appears to be in a dysphoric mood and presents with a distressed affect. Pt appears to be alert and oriented x4 (time, place, self, and situation). Pt denies both suicidal and homicidal ideation as well as auditory and visual hallucinations. Pt will be under the care of her psychiatrist, Dr. Monreal, located at [address] [address]; and her sales designer, Dr. Browne, located at [address] [facility] [address] [address]; . The choice of vendor and multidisciplinary exit care form was done, printed, signed, and given to the patient.
--- NOTE | 2021-04-18 15:50 | NUR ---
RN DC NOTE- PT DC AT THIS TIME TO [facility] VIA AMBULANCE. PT IS ALERT ORIENTED TO PERSON PLACE . PT VS STABLE, CONFUSED W FLAT AFFECT,. DENIES SI HI AH VH. ID WRISTBAND REMOVED. VALUABLES RETURNED. PT REFUSED VACCINES. SKIN INTACT. ESCORTED OFF UNIT BY STAFF.
== END 2021-04-18 15:50 | DRG 885 ==
LOC: GPS 06:24
PROVIDERS: ADMIT Psychiatry & Neurology Psychosomatic Medicine; ATTEND Nurse Practitioner Acute Care
DX: F20.9 Schizophrenia, unspecified (principal); F01.50 Vascular dementia, unspecified severity, without behavioral disturbance, psychotic disturbance, mood disturbance, and anxiety; F29 Unspecified psychosis not due to a substance or known physiological condition; I10 Essential (primary) hypertension; E11.9 Type 2 diabetes mellitus without complications; F41.9 Anxiety disorder, unspecified; F60.3 Borderline personality disorder; Z73.6 Limitation of activities due to disability; R53.1 Weakness; R27.8 Other lack of coordination; Z91.81 History of falling; E78.5 Hyperlipidemia, unspecified; K21.9 Gastro-esophageal reflux disease without esophagitis; F32.9 Major depressive disorder, single episode, unspecified
CPT/HCPCS: 36415; 80048-TC; 80053-TC; 80061-TC